=== PATIENT | female | born 1980 | race Caucasian/White ===

== ENCOUNTER → 2016-11-25 | Outpatient (CLI) | payer OTHER ==
[~2016-11-25] MED LIST: ACHYD1T PO; DCS100C PO; IBP800T PO; OXYC1TAB12 PO; PREN1TAB39 PO
--- OUTSIDE RECORDS SUMMARY | 2016-11-25 13:38 | XMS REPORT | Continuity of Care Document ---
Author Author [facility] Organization [facility] Address Unknown Phone Unavailable Allergies Active Description Code Type Severity Reaction Onset Reported/Identified Relationship to Patient Clinical Status Yes NKANo Known Allergies NKA Miscellaneous Allergy Unknown N/ A 07/31/2006 Medications Problems Date Dx Coded Attending Type Code Diagnosis Diagnosed By 05/12/2012 Ot 631.8 OTHER ABNORMAL PRODUCTS OF CONCEPTION 05/12/2012 Ot 642.51 SEVERE PREECLAMP-DELIVER 05/12/2012 Ot 654.21 PREV DELIVRY W/ OR W/O MENT ANT 05/12/2012 Ot 656.41 INTRAUTER -DELIVER 05/12/2012 Ot 656.51 POOR GROWTH-DELIV 05/12/2012 Ot 658.01 OLIGOHYDRAMNIOS-DELIVER 05/12/2012 Ot 666.12 POSTPA HEM NEC-DEL W P/P 05/12/2012 Ot 674.32 OB SURG COMPL-DEL W P/P 05/12/2012 Ot V27.1 DELIVER-SINGLE STILLBORN 09/27/2014 Ot 786.09 09/27/2014 Ot 786.2 09/27/2014 Ot 786.50 10/11/2014 MIKO HOGAN MD Ot 654.21 PREV DELIVRY W/ OR W/O MENT ANT 10/11/2014 MIKO HOGAN MD Ot V27.0 DELIVER-SINGLE LIVEBORN 10/13/2015 Ot 786.09 10/13/2015 Ot 786.2 10/13/2015 Ot 786.50 10/13/2015 MIKO HOGAN MD Ot 654.23 10/13/2015 MIKO HOGAN MD Ot V72.84 12/20/2015 Ot 786.09 12/20/2015 Ot 786.2 12/20/2015 Ot 786.50 12/20/2015 MIKO HOGAN MD Ot 654.23 12/20/2015 MIKO HOGAN MD Ot V72.84 12/20/2015 ORENDER DO, RASHEEDA S Ot E78.5 12/20/2015 ORENDER DO, RASHEEDA S Ot R73.9 12/20/2015 ORENDER DO, RASHEEDA S Ot Z00.00 02/08/2016 ORENDER DO, RASHEEDA S Ot E78.5 HYPERLIPIDEMIA, UNSPECIFIED 02/08/2016 ORENDER DO, RASHEEDA S Ot R73.9 HYPERGLYCEMIA, UNSPECIFIED 02/08/2016 ORENDER DO, RASHEEDA S Ot Z00.00 ENCNTR FOR GENERAL ADULT MEDICAL EXAM W/ 04/01/2016 Ot 786.09 RESPIRATORY ABNORM NEC 04/01/2016 Ot 786.2 COUGH 04/01/2016 Ot 786.50 CHEST PAIN NOS 04/01/2016 MIKO HOGAN MD Ot 654.23 PREV DELIVERY, ANTEPARTUM COND 04/01/2016 MIKO HOGAN MD Ot V72.84 EXAM PRE-OPERATIVE NOS 04/01/2016 ORENDER DO, RASHEEDA S Ot E78.5 HYPERLIPIDEMIA, UNSPECIFIED 04/01/2016 ORENDER DO, RASHEEDA S Ot R73.9 HYPERGLYCEMIA, UNSPECIFIED 04/01/2016 ORENDER DO, RASHEEDA S Ot Z00.00 ENCNTR FOR GENERAL ADULT MEDICAL EXAM W/ 04/01/2016 Ot 786.09 RESPIRATORY ABNORM NEC 04/01/2016 Ot 786.2 COUGH 04/01/2016 Ot 786.50 CHEST PAIN NOS 04/01/2016 MIKO HOGAN MD Ot 654.23 PREV DELIVERY, ANTEPARTUM COND 04/01/2016 MIKO HOGAN MD Ot V72.84 EXAM PRE-OPERATIVE NOS 04/01/2016 ORENDER DO, RASHEEDA S Ot E78.5 HYPERLIPIDEMIA, UNSPECIFIED 04/01/2016 ORENDER DO, RASHEEDA S Ot R73.9 HYPERGLYCEMIA, UNSPECIFIED 04/01/2016 ORENDER DO, RASHEEDA S Ot Z00.00 ENCNTR FOR GENERAL ADULT MEDICAL EXAM W/ 04/05/2016 Ot 786.09 RESPIRATORY ABNORM NEC 04/05/2016 Ot 786.2 COUGH 04/05/2016 Ot 786.50 CHEST PAIN NOS 04/05/2016 MIKO HOGAN MD Ot 654.23 PREV DELIVERY, ANTEPARTUM COND 04/05/2016 MIKO HOGAN MD Ot V72.84 EXAM PRE-OPERATIVE NOS 04/05/2016 RASHEEDA BAILON DO S Ot E78.5 HYPERLIPIDEMIA, UNSPECIFIED 04/05/2016 ORENDER DO, RASHEEDA S Ot R73.9 HYPERGLYCEMIA, UNSPECIFIED 04/05/2016 RICHNDER DO RASHEEDA S Ot Z00.00 ENCNTR FOR GENERAL ADULT MEDICAL EXAM W/ 08/16/2016 Ot 786.09 RESPIRATORY ABNORM NEC 08/16/2016 Ot 786.2 COUGH 08/16/2016 Ot 786.50 CHEST PAIN NOS 08/16/2016 MIKO HOGAN MD Ot 654.23 PREV DELIVERY, ANTEPARTUM COND 08/16/2016 MIKO HOGAN MD Ot V72.84 EXAM PRE-OPERATIVE NOS 08/16/2016 RASHEEDA BAILON DO S Ot E78.5 HYPERLIPIDEMIA, UNSPECIFIED 08/16/2016 RICHNDER DO RASHEEDA S Ot R73.9 HYPERGLYCEMIA, UNSPECIFIED 08/16/2016 ORENDER DO RASHEEDA S Ot Z00.00 ENCNTR FOR GENERAL ADULT MEDICAL EXAM W/ Procedures Code Description Performed By Performed On 74.1 05/10/2012 72.9 10/09/2014 74.1 10/09/2014 Results Encounters ACCT No. Visit Date/Time Discharge Status Pt. Type Provider Facility Loc./Unit Complaint [id number] 10/09/2014 06:01:00 2014 17:35:00 DIS Inpatient MIKO HOGAN MD [facility] LDRP PREVIOUS SECTION [id number] 10/04/2014 06:49:00 2013 23:59:59 CLS Outpatient MIKO HOGAN MD [facility] PREOP PREVIOUS SECTION [id number] 11/29/2015 08:02:00 ACT Outpatient RASHEEDA BAILON DO S [facility] LAB YEARLY LAB, HYPERLIPIDEMIA, HYPERGLYCEMIA [id number] 06/17/2012 11:06:00 Document Registration [id number] 05/10/2012 08:54:00 Document Registration
--- NOTE | 2016-11-25 18:23 | Diagnostic Imaging Report ---
EXAMINATION: Digital Mammogram bilateral screening. INDICATION: Screening. This is the patient's baseline study. At this time, there no current complaints. The current study was also evaluated with a Computer Aided Detection (CAD) system. FINDINGS: The fibroglandular tissue in both breasts is heterogeneously dense. This does limit the sensitivity of this exam. There is no primary or secondary sign of malignancy noted. IMPRESSION: There is no evidence of malignancy. ACR BI-RADS Category 1: Negative. Result letter will be mailed to the patient. Note: At least 10% of breast cancer is not imaged by mammography. Dictated by: Dictated on workstation # [id number]
== END ==
LOC: RAD 12:56
PROVIDERS: ATTEND Obstetrics & Gynecology
DX: Z12.31 Encounter for screening mammogram for malignant neoplasm of breast (principal)
CPT/HCPCS: 77067

== ENCOUNTER 2017-01-23 08:01 | Outpatient (RCR) | payer OTHER ==
--- OUTSIDE RECORDS SUMMARY | 2016-12-05 07:52 | XMS REPORT | Continuity of Care Document ---
Author Author [facility] Organization [facility] Address Unknown Phone Unavailable Allergies Active Description [...] MD Ot V72.84 EXAM PRE-OPERATIVE NOS 04/05/2016 RICHNDER , RASHEEDA S Ot E78.5 HYPERLIPIDEMIA, UNSPECIFIED 04/05/2016 ORENDER DO, RASHEEDA S Ot R73.9 HYPERGLYCEMIA, UNSPECIFIED 04/05/2016 ORENDER DO, RASHEEDA S Ot Z00.00 ENCNTR FOR GENERAL ADULT MEDICAL EXAM W/ 08/16/2016 Ot 786.09 RESPIRATORY ABNORM NEC 08/16/2016 Ot 786.2 COUGH 08/16/2016 Ot 786.50 CHEST PAIN NOS 08/16/2016 MIKO HOGAN MD Ot 654.23 PREV DELIVERY, ANTEPARTUM COND 08/16/2016 MIKO HOGAN MD Ot V72.84 EXAM PRE-OPERATIVE NOS 08/16/2016 ORENDER DO RASHEEDA S Ot E78.5 HYPERLIPIDEMIA, UNSPECIFIED 08/16/2016 ORENDER DO, RASHEEDA S Ot R73.9 HYPERGLYCEMIA, UNSPECIFIED 08/16/2016 ORENDER DO, RASHEEDA S Ot Z00.00 ENCNTR FOR GENERAL ADULT MEDICAL EXAM W11/26/2016 MIKO HOGAN MD Ot Z12.31 ENCNTR SCREEN MAMMOGRAM FOR MALIGNANT NE 11/26/2016 MIKO HOGAN MD Ot Z12.31 ENCNTR SCREEN MAMMOGRAM FOR MALIGNANT NE Procedures Code Description Performed By Performed On 74.1 05/10/2012 72.9 10/09/2014 74.1 10/09/2014 Results Encounters ACCT No. Visit Date/Time Discharge Status Pt. Type Provider Facility Loc./Unit Complaint [id number] 10/09/2014 06:01:00 2014 17:35:00 DIS Inpatient MIKO HOGAN MD [facility] LDRP PREVIOUS SECTION [id number] 10/04/2014 06:49:00 2013 23:59:59 CLS Outpatient MIKO HOGAN MD [facility] PREOP PREVIOUS SECTION [id number] 12/05/2016 10:02:00 PEN Preadmit RASHEEDA BAILON DO [facility] REHAB LEG LENGTH DISCREPANCY [id number] 11/25/2016 12:56:00 ACT Outpatient MIKO HOGAN MD [facility] RAD SCREENING [id number] 11/29/2015 08:02:00 ACT Outpatient RASHEEDA BAILON DO [facility] LAB YEARLY LAB, HYPERLIPIDEMIA, HYPERGLYCEMIA [id number] 06/17/2012 11:06:00 Document Registration [id number] 05/10/2012 08:54:00 Document Registration
== END 2017-03-05 | disposition home or self-care (01) ==
PROVIDERS: ATTEND Family Medicine
DX: M54.42 Lumbago with sciatica, left side (principal); M21.70 Unequal limb length (acquired), unspecified site

== ENCOUNTER → 2017-12-10 | Outpatient (CLI) | payer OTHER ==
[2017-12-10 08:05] LABS: BASOPHILS % (AUTO) 0 % (0-10); EOSINOPHILS # (AUTO) 0.1 10^3/uL (0.0-0.3); EOSINOPHILS % (AUTO) 1 % (0-10); HEMATOCRIT 35 % (35-52); HEMOGLOBIN 11.8 G/DL (11.5-16.0); LYMPHOCYTES # (AUTO) 2.3 X 10^3 (1.0-4.0); LYMPHOCYTES % (AUTO) 34 % (12-44); MEAN CORPUSCULAR HEMOGLOBIN 28 PG (25-34); MEAN CORPUSCULAR HGB CONC 33 G/DL (32-36); MEAN CORPUSCULAR VOLUME 85 FL (80-99); MEAN PLATELET VOLUME 9.3 FL (7.4-10.4); MONOCYTES # (AUTO) 0.5 X 10^3 (0.0-1.0); MONOCYTES % (AUTO) 7 % (0-12); NEUTROPHILS # (AUTO) 3.9 X 10^3 (1.8-7.8); NEUTROPHILS % (AUTO) 58 % (42-75); PLATELET COUNT 255 10^3/uL (130-400); RED BLOOD COUNT 4.16 10^6/uL (4.35-5.85); RED CELL DISTRIBUTION WIDTH 12.8 % (10.0-14.5); WHITE BLOOD COUNT 6.8 10^3/uL (4.3-11.0)
[2017-12-10 08:32] LABS: ALANINE AMINOTRANSFERASE 16 U/L (0-55); ALBUMIN 4.1 GM/DL (3.2-4.5); ALKALINE PHOSPHATASE 42 U/L (40-136); BILIRUBIN,TOTAL 0.8 MG/DL (0.1-1.0); BUN/CREATININE RATIO 18; CARBON DIOXIDE 26 MMOL/L (21-32); CHLORIDE 105 MMOL/L (98-107); CHOLESTEROL 219 MG/DL (< 200); CREATININE SERUM 0.72 MG/DL (0.60-1.30); GFR ESTIMATED > 60; GLUCOSE 93 MG/DL (70-105); HDL CHOLESTEROL 58 MG/DL (40-60); POTASSIUM 4.2 MMOL/L (3.6-5.0); SODIUM 138 MMOL/L (135-145); TOTAL PROTEIN 6.7 GM/DL (6.4-8.2); TRIGLYCERIDES 78 MG/DL (<150); VLDL CHOLESTEROL 16 MG/DL (5-40)
[2017-12-10 08:53] LABS: FREE T4 (FREE THYROXINE) 0.96 NG/DL (0.70-1.48)
== END ==
LOC: LAB 07:50
PROVIDERS: ATTEND Family Medicine
DX: Z00.00 Encounter for general adult medical examination without abnormal findings (principal); R00.0 Tachycardia, unspecified
CPT/HCPCS: 36415; 80053; 80061; 84439; 84443; 85025

== ENCOUNTER → 2018-12-28 | Outpatient (CLI) | payer OTHER ==
--- NOTE | 2018-12-28 14:14 | Diagnostic Imaging Report ---
PROCEDURE: US Gallbladder. TECHNIQUE: Multiple real-time grayscale images were obtained over the right upper quadrant in various projections. INDICATION: Right upper quadrant abdominal pain. COMPARISON: None. FINDINGS: The size and echogenicity of the liver is normal. There is no mass or intrahepatic biliary ductal dilatation. Portal venous flow is normal. Common bile duct is normal at 3.7 mm. Multiple gallstones are present. The gallbladder wall is otherwise normal. There is no cholecystitis or free fluid. The pancreas, IVC, aorta and right kidney are normal. No ascites. IMPRESSION: Cholelithiasis without cholecystitis. Dictated by: Dictated on workstation # [id number]
== END ==
LOC: RAD 08:45
PROVIDERS: ATTEND Obstetrics & Gynecology
DX: K80.20 Calculus of gallbladder without cholecystitis without obstruction (principal)
CPT/HCPCS: 76705

== ENCOUNTER 2019-01-24 05:35 | Outpatient (CLI) | payer OTHER ==
[~2019-01-24] VITALS: Ht 172.7 cm; Wt 72.6 kg
[2019-01-24] MEDS ORDERED: MULT1CAP27 PO (14:06)
== END 2019-01-24 14:14 | disposition home or self-care (01) ==
LOC: PREOP 05:35
PROVIDERS: ATTEND Surgery
DX: Z01.818 Encounter for other preprocedural examination (principal)

== ENCOUNTER 2019-01-27 07:00 | Day surgery (SDC) | payer OTHER ==
[2019-01-27] VITALS (11 sets, daily range): BP systolic 95–112; BP diastolic 58–73
[~2019-01-27] VITALS: Ht 172.7 cm; Wt 72.6 kg
[~2019-01-27 07:00] MED LIST changes: +MULT1CAP27 PO
[2019-01-27] MEDS ORDERED: SEVOFLURANE (ULTANE) 15 ML INHAL SOLN ONE ×5 (07:25→10:12)
[2019-01-27] MEDS ORDERED: ROCURONIUM 10 MG/ML 5 ML SYRINGE IV ONE (07:25)
[2019-01-27] MEDS ORDERED: DEXAMETHASONE 10 MG/ML (DECADRON) 1 ML VIAL ONE (07:25)
[2019-01-27] MEDS ORDERED: proPOfol 200 MG/20 ML (DIPRIVAN) VIAL IV ONE (07:25)
[2019-01-27] MEDS ORDERED: ONDANSETRON 4 MG/2 ML (SDV) Z0FRAN ONE (07:25)
[2019-01-27] MEDS ORDERED: MIDAZOLAM 2 MG/2 ML (VERSED) VIAL ONE (07:25)
[2019-01-27] MEDS ORDERED: LIDOCAINE PF 2% 5 ML (XYLOCAINE) VIAL ONE (07:25)
[2019-01-27] MEDS ORDERED: fentaNYL INJECTION 100 MCG/2 ML AMP ONE ×2 (07:25→09:36)
[2019-01-27] MEDS ORDERED: ceFAZolin 2 GM IV Premixed 50 ML IV ONE (07:30)
[2019-01-27] MEDS ORDERED: CATHETER FLUSH 10 ML SYR IV PRN (07:30)
[2019-01-27] MEDS: LACTATED RINGERS 1,000 ML IV PRN ×2 (07:39→09:40)
--- NOTE | 2019-01-27 08:16 | Progress Note-Pre Operative ---
Pre-Operative Progress Note H&P Reviewed The H&P was reviewed, patient examined and no changes noted. Date Seen by Provider: Jan 27, 2019 Time Seen by Provider: 08:15 Date H&P Reviewed: Jan 27, 2019 Time H&P Reviewed: 08:10 Pre-Operative Diagnosis: Symptomatic Chronic Calculous Cholecystitis BISHOP ROBERTS APRN Jan 27, 2019 08:16
[2019-01-27] MEDS ORDERED: OXYC1TAB16 PO (08:18)
--- NOTE | 2019-01-27 08:19 | Discharge Inst-Surgical ---
D/C Lap Instructions-KIDO New, Converted, or Re-Newed RX: RX on Chart Follow Up Appt in 2 weeks Activity as tolerated No driving for 24 hours No driving while on pain medications Incentive Spirometry use every 2 hours while awake Regular Diet Symptoms to Report: Fever over 101 degree F, Nausea/Vomiting Infection Signs and Symptoms to report: Increased redness, Foul odor of wound, Increased drainage Bathing instructions: May shower Operative Area Clean/Dry; Keep incision clean/dry If any problems/questions: Contact your physician or go to Emergency Room BISHOP ROBERTS APRN Jan 27, 2019 08:19
[2019-01-27] MEDS ORDERED: BUP/EPI 0.5% 1:200,000 (SENSORCAINE) 30 ML VIAL ONE (08:29)
[2019-01-27] MEDS ORDERED: ONDANSETRON 4 MG/2 ML (SDV) Z0FRAN IVP PRN ×2 (08:30→10:45)
[2019-01-27] MEDS ORDERED: ACETAMINOPHEN 325 MG TABLET PO PRN (08:30)
[2019-01-27] MEDS ORDERED: oxyCODONE/APAP 5/325MG (PERCOCET 5) TABLET PO PRN (08:30)
[2019-01-27] MEDS ORDERED: morphine INJ 10 MG/ML 1ML (SYR OR VIAL) IVP PRN (08:30)
[2019-01-27] MEDS ORDERED: NEOSTIGMINE 1 MG/ML 5 ML SYRINGE ONE (10:12)
[2019-01-27] MEDS ORDERED: GLYCOPYRROLATE 0.2 MG/ML (ROBINUL) 2 ML VIAL ONE (10:13)
--- NOTE | 2019-01-27 10:33 | Progress Note-Post Operative ---
Post-Operative Progess Note Surgeon (s)/Internet Sales Director (s) Surgeon AMAURI ALDRICH MD Internet Sales Director: alfa aponte REPRESENTATIVE Pre-Operative Diagnosis Symptomatic Chronic Calculous Cholecystitis Post-Operative Diagnosis same Procedure & Operative Findings Date of Procedure 01/27/19 Procedure Performed/Findings laparoscopic cholecystectomy Anesthesia Type GET Estimated Blood Loss Estimated blood loss (mL): minimal Specimens/Packing Specimens Removed gallbladder AMAURI ALDRICH MD Jan 27, 2019 10:32
[2019-01-27] MEDS ORDERED: MEPERIDINE (DEMEROL) INJ 50 MG/ML IVP ONE (10:45)
[2019-01-27] MEDS ORDERED: morphine INJ 10 MG/ML 1ML (SYR OR VIAL) IVP ONE (10:45)
[2019-01-27] MEDS ORDERED: fentaNYL INJECTION 100 MCG/2 ML AMP IVP ONE (10:45)
--- NOTE | 2019-01-27 13:41 | Anesthesia-General Post-Op ---
General Patient Condition Mental Status/LOC: Same as Preop Cardiovascular: Satisfactory Nausea/Vomiting: Absent Respiratory: Satisfactory Pain: Controlled Complications: Absent Post Op Complications Complications None Follow Up Care/Instructions Patient Instructions None needed. Anesthesia/Patient Condition Patient Condition Patient is doing well, no complaints, stable vital signs, no apparent adverse anesthesia problems. No complications reported per nursing. D/C home per [facility] Criteria: Yes TIM LIMA CRNA Jan 27, 2019 13:41
--- NOTE | 2019-01-27 14:55 | OPERATIVE REPORT ---
DATE OF SERVICE: 01/27/2019 ATTENDING PRIMARY CARE PHYSICIAN: Dr. Pope. PREOPERATIVE DIAGNOSIS: Symptomatic chronic calculous cholecystitis. POSTOPERATIVE DIAGNOSIS: Symptomatic chronic calculous cholecystitis. PROCEDURE: Laparoscopic cholecystectomy. SURGEON: Amauri Aldrich MD. SALES MERCHANDISE ASSOCIATE: Epifanio Holman APRN. ANESTHESIA: General endotracheal. ESTIMATED BLOOD LOSS: Minimal. FINDINGS: A distended gallbladder with multiple gallstones. DISPOSITION: The patient tolerated the procedure well. INDICATIONS: The patient is a 38-year-old female, who has had intermittent pain in the right upper abdominal quadrant usually after meals. She states that this has initially started 5 to six months ago; however, has become much more significant with increased frequency as well as severity in the past few months. An ultrasound was performed, which did show multiple gallstones. DESCRIPTION OF PROCEDURE: The patient was brought to the operating room and laid supine on the table. After adequate IV pain and sedative medications and general endotracheal intubation, the abdomen was prepped and draped in standard surgical fashion . A 0.5% Marcaine with epinephrine was used to anesthetize the overlying skin in the left upper abdominal quadrant and a transverse skin incision was made using a 15 blade. A 0 silk suture was applied to the medial aspect of the incision for retraction and the Veress needle inserted with a low opening pressure of 0 mmHg and the abdomen was then insufflated to 15 mmHg pressure. The Veress needle was removed and a 5 mm Xcel trocar placed followed by a 5 mm 45-degree angle laparoscope visualizing the peritoneal cavity. A four-quadrant abdominal exploration was performed. There was a slightly distended gallbladder; however, no significant gallbladder wall inflammation. The remainder of the liver, stomach, omentum and small bowel appeared normal. Under direct visualization, we then proceeded to place a supraumbilical 10 mm port after the skin and peritoneal lining were anesthetized using a 0.5% Marcaine with epinephrine and a transverse skin incision was made using a 15 blade. In a similar manner, a right upper abdominal quadrant 5 mm port was placed. The patient was then placed in a reverse Trendelenburg position as well as planed right side up, left side down. The fundus of the gallbladder was then retracted anteriorly and superiorly. The hepatoduodenal ligament was then opened with blunt dissection as well as cautery using the hook instrument. The entire critical view of safety was identified including the triangle of Calot as well as the cystic duct and artery as the only two structures going into the gallbladder as well as the cystic plate behind the proximal gallbladder. A timeout was then taken and the cystic duct and artery were then clipped proximally and distally and cut with EndoShears. The gallbladder was then dissected off the liver bed using cautery on the hook instrument with visualization of good hemostasis as well as no leaking ducts of Luschka. The gallbladder was removed through the 10 mm port site using an EndoCatch bag. The 10 mm port site fascia and peritoneum were then closed under direct visualization using a Henri-Norah device and 0 Vicryl suture. The abdomen was then desufflated and remaining ports removed. All skin incisions were closed using 4-0 Monocryl running subcuticular sutures. Wounds were then cleaned and covered with Dermabond. The patient tolerated the procedure well. We will start IV and oral pain medication as well as a clear liquid diet. Once she is tolerating clears and has good pain control with oral pain medications and ambulating well, we will discharge her home. She will be instructed to do no heavy lifting or exertion for the next two weeks. Job ID: [id number] DocumentID: [id number] Dictated Date: 01/27/2019 10:24:09 Molten Iron Pourer Date: 01/27/2019 14:54:39 Dictated By: AMAURI ALDRICH MD [facility]
== END 2019-01-27 13:35 | disposition home or self-care (01) ==
LOC: SDC 07:00
PROVIDERS: ATTEND Surgery
DX: K80.10 Calculus of gallbladder with chronic cholecystitis without obstruction (principal)
CPT/HCPCS: 84703; 87081; 94664

== ENCOUNTER → 2019-06-13 | Outpatient (CLI) | payer OTHER ==
[~2019-06-13] MED LIST changes: +OXYC1TAB16 PO
[2019-06-13 08:08] LABS: BASOPHILS % (AUTO) 0 % (0-10); EOSINOPHILS # (AUTO) 0.1 10^3/uL (0.0-0.3); EOSINOPHILS % (AUTO) 1 % (0-10); HEMATOCRIT 39 % (35-52); HEMOGLOBIN 12.9 G/DL (11.5-16.0); LYMPHOCYTES % (AUTO) 29 % (12-44); MEAN CORPUSCULAR HEMOGLOBIN 28 PG (25-34); MEAN CORPUSCULAR HGB CONC 33 G/DL (32-36); MEAN CORPUSCULAR VOLUME 84 FL (80-99); MEAN PLATELET VOLUME 9.7 FL (7.4-10.4); MONOCYTES # (AUTO) 0.4 X 10^3 (0.0-1.0); MONOCYTES % (AUTO) 6 % (0-12); NEUTROPHILS # (AUTO) 4.3 X 10^3 (1.8-7.8); NEUTROPHILS % (AUTO) 64 % (42-75); PLATELET COUNT 243 10^3/uL (130-400); RED CELL DISTRIBUTION WIDTH 12.5 % (10.0-14.5); WHITE BLOOD COUNT 6.8 10^3/uL (4.3-11.0)
[2019-06-13 08:34] LABS: ALANINE AMINOTRANSFERASE 15 U/L (0-55); ALBUMIN 4.6 GM/DL (3.2-4.5); ALKALINE PHOSPHATASE 50 U/L (40-136); BILIRUBIN,TOTAL 0.7 MG/DL (0.1-1.0); BUN/CREATININE RATIO 17; CALCIUM 9.6 MG/DL (8.5-10.1); CARBON DIOXIDE 25 MMOL/L (21-32); CHLORIDE 105 MMOL/L (98-107); CHOLESTEROL 203 MG/DL (< 200); CREATININE SERUM 0.78 MG/DL (0.60-1.30); GFR ESTIMATED > 60; GLUCOSE 87 MG/DL (70-105); HDL CHOLESTEROL 62 MG/DL (40-60); SODIUM 139 MMOL/L (135-145); TOTAL PROTEIN 7.1 GM/DL (6.4-8.2); TRIGLYCERIDES 97 MG/DL (<150); VLDL CHOLESTEROL 19 MG/DL (5-40)
== END ==
LOC: LAB 07:52
PROVIDERS: ATTEND Family Medicine
DX: E78.5 Hyperlipidemia, unspecified (principal)
CPT/HCPCS: 36415; 80053; 80061; 84443; 85025

== ENCOUNTER → 2020-08-20 | Outpatient (CLI) | payer OTHER ==
--- NOTE | 2020-08-20 13:22 | Diagnostic Imaging Report ---
INDICATION: Back pain. TECHNIQUE: Three views of the lumbar spine were obtained. FINDINGS: The alignment is normal. The vertebral body heights are well-maintained. There is no spondylolysis or spondylolisthesis. No fractures are identified. There are minimal degenerative changes IMPRESSION: Minimal degenerative changes; otherwise, unremarkable. Dictated by: Dictated on workstation # [id number]
== END ==
LOC: RAD 11:14
PROVIDERS: ATTEND Family Medicine
DX: M47.816 Spondylosis without myelopathy or radiculopathy, lumbar region (principal)
CPT/HCPCS: 72100

== ENCOUNTER 2020-09-21 13:44 | Outpatient (RCR) | payer OTHER | END 2020-10-26 11:00 | disposition home or self-care (01) | PROVIDERS: ATTEND Family Medicine | DX: M54.16 Radiculopathy, lumbar region (principal); Z90.49 Acquired absence of other specified parts of digestive tract ==

== ENCOUNTER → 2020-09-21 | Outpatient (CLI) | payer OTHER ==
--- NOTE | 2020-09-21 12:16 | Diagnostic Imaging Report ---
PROCEDURE: MRI lumbar spine. TECHNIQUE: Multiplanar, multisequence MRI of the lumbar spine was performed without contrast. INDICATION: Back injury in May with continued low back pain extending into both legs. COMPARISON: No prior studies are available for comparison. FINDINGS: Curvature and alignment of the lumbar spine is normal. Vertebral body heights are well-maintained. Marrow signal intensity is unremarkable. No fracture or geographic marrow lesion is seen. There is some loss of height and signal intensity to the L4-L5 and L5-S1 discs compatible with degenerative disc disease. The conus is unremarkable at the T12-L1 level. T12-L1: Central canal and neural foramina are widely patent. L1-T2: Central canal and neural foramina are widely patent. There are degenerative changes to the facets. L2-L3: Central canal and neural foramina are widely patent. There are degenerative changes to the facets. L3-L4: There is some mild annular bulging, flattening of the ventral thecal sac. Central canal remains patent. There is very mild narrowing of the lateral recesses and neural foramina bilaterally. There are some hypertrophic facet changes present with ligamentous thickening. L4-L5: There is old prominent wide-based disc bulging indenting the ventral thecal sac. This in combination with ligamentous thickening and hypertrophic facet changes results in significant trefoil stenosis to the central canal. There is also severe bilateral lateral recess stenosis with moderate bilateral neural foraminal stenosis. L5-S1: There is a very large wide-based disc bulge which nearly completely obliterates the central canal. There is severe bilateral lateral recess stenosis with moderate bilateral neural foraminal stenosis. Degenerative facet changes are seen. IMPRESSION: Lower lumbar spondylosis. There are prominent disc bulges at L4-L5 and L5-S1 levels, as described. Severe central canal stenosis at L4-L5 level is seen. A large disc bulge nearly obliterates the thecal sac at the L5-S1 level. There is also severe bilateral lateral recess stenosis at these levels with moderate bilateral neural foraminal stenosis. Dictated by: Dictated on workstation # [id number]
== END ==
LOC: RAD 08:00
PROVIDERS: ATTEND Family Medicine
DX: M51.17 Intervertebral disc disorders with radiculopathy, lumbosacral region (principal); M47.27 Other spondylosis with radiculopathy, lumbosacral region; M48.07 Spinal stenosis, lumbosacral region
CPT/HCPCS: 72148

== ENCOUNTER → 2021-01-16 | Outpatient (CLI) | payer OTHER ==
[2021-01-16 08:13] LABS: BASOPHILS # (AUTO) 0.1 10^3/uL (0.0-0.1); BASOPHILS % (AUTO) 1 % (0-10); EOSINOPHILS # (AUTO) 0.2 10^3/uL (0.0-0.3); EOSINOPHILS % (AUTO) 3 % (0-10); HEMATOCRIT 40 % (35-52); HEMOGLOBIN 12.6 g/dL (11.5-16.0); LYMPHOCYTES % (AUTO) 26 % (12-44); MEAN CORPUSCULAR HEMOGLOBIN 28 pg (25-34); MEAN CORPUSCULAR HGB CONC 32 g/dL (32-36); MEAN CORPUSCULAR VOLUME 90 fL (80-99); MEAN PLATELET VOLUME 9.4 fL (9.0-12.2); MONOCYTES # (AUTO) 0.5 10^3/uL (0.0-1.0); MONOCYTES % (AUTO) 7 % (0-12); NEUTROPHILS % (AUTO) 63 % (42-75); PLATELET COUNT 245 10^3/uL (130-400); WHITE BLOOD COUNT 7.8 10^3/uL (4.3-11.0)
[2021-01-16 08:32] LABS: ALANINE AMINOTRANSFERASE 27 U/L (0-55); ALBUMIN 4.4 GM/DL (3.2-4.5); ALKALINE PHOSPHATASE 67 U/L (40-136); BILIRUBIN,TOTAL 0.6 MG/DL (0.1-1.0); BUN/CREATININE RATIO 14; CALCIUM 9.2 MG/DL (8.5-10.1); CARBON DIOXIDE 22 MMOL/L (21-32); CHLORIDE 105 MMOL/L (98-107); CHOLESTEROL 215 MG/DL (< 200); CREATININE SERUM 0.76 MG/DL (0.60-1.30); GFR ESTIMATED > 60; GLUCOSE 93 MG/DL (70-105); HDL CHOLESTEROL 60 MG/DL (40-60); POTASSIUM 4.1 MMOL/L (3.6-5.0); SODIUM 137 MMOL/L (135-145); TOTAL PROTEIN 7.2 GM/DL (6.4-8.2); TRIGLYCERIDES 106 MG/DL (<150); VLDL CHOLESTEROL 21 MG/DL (5-40)
[2021-01-16 08:52] LABS: FREE T4 (FREE THYROXINE) 0.91 NG/DL (0.70-1.48)
== END ==
LOC: LAB 07:40
PROVIDERS: ATTEND Family Medicine
DX: Z00.00 Encounter for general adult medical examination without abnormal findings (principal); E78.5 Hyperlipidemia, unspecified
CPT/HCPCS: 36415; 80053; 80061; 84439; 84443; 85025

== ENCOUNTER 2021-02-01 11:07 | Outpatient (RCR) | payer OTHER | END 2021-03-18 | disposition home or self-care (01) | PROVIDERS: ATTEND Registered Nurse | DX: Z09 Encounter for follow-up examination after completed treatment for conditions other than malignant neoplasm (principal); M54.16 Radiculopathy, lumbar region ==

== ENCOUNTER → 2021-12-23 | Outpatient (CLI) | payer OTHER ==
--- NOTE | 2021-12-23 12:36 | Diagnostic Imaging Report ---
INDICATION: Routine screening. Comparison is made with prior mammogram 11/25/2016. 2-D and 3-D bilateral screening mammography was performed with CAD. Both breasts are heterogeneously dense, limiting the sensitivity of mammography. No mass or malignant-appearing microcalcifications are seen. Axillae are unremarkable. IMPRESSION: No mammographic features suspicious for malignancy are identified. ACR BI-RADS Category 1: Negative. Result letter will be mailed to the patient. Note: At least 10% of breast cancer is not imaged by mammography. BI-RADS Category 1 Dictated by: Dictated on workstation # [id number]
== END ==
LOC: RAD 09:45
PROVIDERS: ATTEND Obstetrics & Gynecology
DX: Z12.31 Encounter for screening mammogram for malignant neoplasm of breast (principal)
CPT/HCPCS: 77063; 77067

== ENCOUNTER → 2021-12-26 | Outpatient (CLI) | payer OTHER | LOC: CARD 10:30 | PROVIDERS: ATTEND Family Medicine | DX: R07.89 Other chest pain (principal); M54.2 Cervicalgia; M25.519 Pain in unspecified shoulder | CPT/HCPCS: 93005 ==

== ENCOUNTER → 2022-01-10 | Outpatient (CLI) | payer OTHER ==
[2022-01-10 07:59] LABS: BASOPHILS # (AUTO) 0.1 10^3/uL (0.0-0.1); BASOPHILS % (AUTO) 1 % (0-10); EOSINOPHILS # (AUTO) 0.2 10^3/uL (0.0-0.3); EOSINOPHILS % (AUTO) 2 % (0-10); HEMATOCRIT 39 % (35-52); HEMOGLOBIN 12.8 g/dL (11.5-16.0); LYMPHOCYTES # (AUTO) 1.8 10^3/uL (1.0-4.0); LYMPHOCYTES % (AUTO) 22 % (12-44); MEAN CORPUSCULAR HEMOGLOBIN 28 pg (25-34); MEAN CORPUSCULAR HGB CONC 33 g/dL (32-36); MEAN CORPUSCULAR VOLUME 86 fL (80-99); MEAN PLATELET VOLUME 9.6 fL (9.0-12.2); MONOCYTES # (AUTO) 0.5 10^3/uL (0.0-1.0); MONOCYTES % (AUTO) 6 % (0-12); NEUTROPHILS # (AUTO) 5.9 10^3/uL (1.8-7.8); NEUTROPHILS % (AUTO) 69 % (42-75); PLATELET COUNT 245 10^3/uL (130-400); WHITE BLOOD COUNT 8.5 10^3/uL (4.3-11.0)
[2022-01-10 08:20] LABS: ALBUMIN 4.3 GM/DL (3.2-4.5); BILIRUBIN,TOTAL 0.8 MG/DL (0.1-1.0); CALCIUM 9.3 MG/DL (8.5-10.1); CREATININE SERUM 0.78 MG/DL (0.60-1.30); POTASSIUM 4.1 MMOL/L (3.6-5.0)
[2022-01-10 08:41] LABS: FREE T4 (FREE THYROXINE) 0.93 NG/DL (0.70-1.48)
== END ==
LOC: LAB 07:37
PROVIDERS: ATTEND Family Medicine
DX: Z00.00 Encounter for general adult medical examination without abnormal findings (principal); Z13.6 Encounter for screening for cardiovascular disorders; E78.2 Mixed hyperlipidemia
CPT/HCPCS: 36415; 80053; 80061; 84439; 84443; 85025

== ENCOUNTER → 2023-01-22 | Outpatient (CLI) | payer OTHER ==
[2023-01-22 07:58] LABS: BASOPHILS # (AUTO) 0.1 10^3/uL (0.0-0.1); BASOPHILS % (AUTO) 1 % (0-10); EOSINOPHILS # (AUTO) 0.1 10^3/uL (0.0-0.3); EOSINOPHILS % (AUTO) 2 % (0-10); HEMATOCRIT 37 % (35-52); HEMOGLOBIN 12.7 g/dL (11.5-16.0); LYMPHOCYTES # (AUTO) 1.9 10^3/uL (1.0-4.0); LYMPHOCYTES % (AUTO) 25 % (12-44); MEAN CORPUSCULAR HEMOGLOBIN 29 pg (25-34); MEAN CORPUSCULAR HGB CONC 34 g/dL (32-36); MEAN CORPUSCULAR VOLUME 84 fL (80-99); MEAN PLATELET VOLUME 9.5 fL (9.0-12.2); MONOCYTES # (AUTO) 0.5 10^3/uL (0.0-1.0); MONOCYTES % (AUTO) 7 % (0-12); NEUTROPHILS % (AUTO) 66 % (42-75); PLATELET COUNT 246 10^3/uL (130-400); WHITE BLOOD COUNT 7.6 10^3/uL (4.3-11.0)
[2023-01-22 08:18] LABS: ALBUMIN 4.4 GM/DL (3.2-4.5); BILIRUBIN,TOTAL 0.6 MG/DL (0.1-1.0); CALCIUM 9.3 MG/DL (8.5-10.1); CREATININE SERUM 0.79 MG/DL (0.60-1.30); POTASSIUM 4.2 MMOL/L (3.6-5.0); TOTAL PROTEIN 7.4 GM/DL (6.4-8.2)
[2023-01-22 08:39] LABS: FREE T4 (FREE THYROXINE) 0.87 NG/DL (0.70-1.48)
== END ==
LOC: LAB 07:35
PROVIDERS: ATTEND Family Medicine
DX: Z00.00 Encounter for general adult medical examination without abnormal findings (principal); E78.2 Mixed hyperlipidemia
CPT/HCPCS: 36415; 80053; 80061; 84439; 84443; 85025

== ENCOUNTER → 2023-05-29 | Outpatient (CLI) | payer OTHER ==
--- NOTE | 2023-05-29 12:36 | Diagnostic Imaging Report ---
INDICATION: Routine screening. Comparison is made with prior mammograms 12/23/2021 and 11/25/2016. 2-D and 3-D bilateral screening mammography was performed with CAD. Both breasts are heterogeneously dense, limiting the sensitivity of mammography. No mass or malignant-appearing microcalcifications are identified. Axillae are unremarkable. IMPRESSION: BI-RADS Category 1 No mammographic features suspicious for malignancy are identified. ACR BI-RADS Category 1: Negative. Result letter will be mailed to the patient. Note: At least 10% of breast cancer is not imaged by mammography. Dictated by: Dictated on workstation # [id number]
== END ==
LOC: RAD 09:30
PROVIDERS: ATTEND Nurse Practitioner Women's Health
DX: Z12.31 Encounter for screening mammogram for malignant neoplasm of breast (principal)
CPT/HCPCS: 77063; 77067